=== PATIENT | female | born 1980 | race African-American/Black ===

== ENCOUNTER 2020-01-20 14:16 | Emergency (ER) | payer OTHER ==
[~2020-01-20] VITALS: Ht 162.6 cm; Wt 75.7 kg
[2020-01-20 14:34] VITALS: BP 134/81
--- NOTE | 2020-01-20 14:39 | NUR ---
WAIT AT LOBBY. HANDED ON URINE CUP.
[2020-01-20 17:16] LABS: APPEARANCE,URINE CLOUDY (CLEAR); BILIRUBIN,URINE NEGATIVE (NEGATIVE); BLOOD, URINE 2+ (NEGATIVE); COLOR,URINE YELLOW (YELLOW); LEUKOCYTE ESTERASE ,URINE TRACE (NEGATIVE); NITRITE, URINE NEGATIVE (NEGATIVE); UGLUCOSE NEGATIVE (NEGATIVE)
[2020-01-20 17:45] LABS: URINE AMORPHOUS URATE 1+ /HPF (None Seen)
== END 2020-01-20 15:21 | disposition home or self-care (01) ==
LOC: MED 14:16
DX: N39.0 Urinary tract infection, site not specified (principal)
CPT/HCPCS: 81001; 81025; 87086; 99283

== ENCOUNTER 2020-04-30 18:50 | Emergency (ER) | payer OTHER ==
[~2020-04-30] VITALS: Ht 162.6 cm; Wt 74.8 kg
[2020-04-30 18:54] VITALS: BP 145/102
--- NOTE | 2020-04-30 19:10 | NUR ---
39 Y/O FEMALE PRESENTED TO THE ED C/O 03/16 [place] ABD PAIN X 3 DAYS. PT STATED THAT SHE WAS SEEN AT [facility] ON 04/29/20 DUE TO SEVERE PAIN, DX AT THAT TIME WAS A POSSIBLE RUPTURE OF AN OVARIAN CYST. ABD IS TENDER TO TOUCH AND WHEN AMBULATING. ABD SOUNDS NORMOACTIVE X4 QUADRANTS. PT DENIES ANY RECENT SURGERIES. PT STATED TAKING ACETAMINOPHEN YESTERDAY 04/29/20 WITH ZERO RELIEF OF PAIN. PT IS LYING IN BED, BED IS IN LOWEST POSITION AND WHEELS ARE LOCKED. PT IS NOT IN ANY ACUTE DISTRESS AT THIS TIME. PMH: NONE NKA
--- NOTE | 2020-04-30 19:15 | NUR ---
ERMD AT BEDSIDE FOR MEDICAL EVALUATION
[2020-04-30] MEDS ORDERED: KETOROLAC 30 MG/ML VIAL IM ONE (19:25)
--- NOTE | 2020-04-30 19:39 | NUR ---
lab at bedside.
[2020-04-30 19:49] LABS: BASOPHILS % (AUTO) 0.3 % (0.0-2.0); EOSINOPHILS % (AUTO) 0.6 % (0.0-4.0); HEMATOCRIT 31.1 % (36-48); HEMOGLOBIN 10.6 g/dL (12.0-16.0); LYMPHOCYTES # (AUTO) 2.3 K/uL (2.5-16.5); LYMPHOCYTES % (AUTO) 27.2 % (20.5-51.1); MEAN CORPUSCULAR HEMOGLOBIN 31 pg (27-31); MEAN CORPUSCULAR HGB CONC 34 g/dL (33-37); MONOCYTES # (AUTO) 0.6 K/uL (0.8-1.0); MONOCYTES % (AUTO) 7.1 % (1.7-9.3); NEUTROPHILS # (AUTO) 5.5 K/uL (1.8-7.7); NEUTROPHILS % (AUTO) 64.8 % (42.2-75.2); PLATELET COUNT (AUTO) 192 K/uL (140-450); RED BLOOD CELL COUNT(AUTO) 3.38 MIL/uL (4.20-5.40); RED CELL DISTRIBUTION WIDTH 14.4 % (11.6-13.7); WHITE BLOOD COUNT (AUTO) 8.5 K/uL (4.8-10.8)
[2020-04-30 19:54] LABS: ANION GAP 10.1 (8-16); CARBON DIOXIDE 27.7 mmol/L (21-32); CREATININE 1.2 mg/dL (0.6-1.3); POTASSIUM 3.8 mmol/L (3.5-5.1)
[2020-04-30 20:35] VITALS: BP 145/102
== END 2020-04-30 20:35 | disposition home or self-care (01) ==
LOC: MED 18:50
DX: N83.299 Other ovarian cyst, unspecified side (principal)
CPT/HCPCS: 36415; 80048; 81025; 85025; 96372; 99283; J1885

== ENCOUNTER 2023-03-23 00:57 | Emergency (ER) | payer OTHER ==
[~2023-03-23] VITALS: Ht 160 cm; Wt 79.4 kg
[2023-03-23 01:10] VITALS: BP 144/84; PULSE 88; RESP 16; TEMP 97.3; O2SAT 99
== END 2023-03-23 01:54 | disposition left against medical advice (07) ==
LOC: MED 00:57
DX: J02.9 Acute pharyngitis, unspecified (principal); Z53.21 Procedure and treatment not carried out due to patient leaving prior to being seen by health care provider
CPT/HCPCS: 99281

== ENCOUNTER 2023-08-19 13:29 | Emergency (ER) | payer OTHER ==
[~2023-08-19] VITALS: Ht 162.6 cm; Wt 79.4 kg
[2023-08-19 13:31] VITALS: BP 143/91; PULSE 94; RESP 18; TEMP 98.2; O2SAT 100
[2023-08-19] MEDS ORDERED: CEPH-588 PO (14:05)
[2023-08-19] MEDS ORDERED: IBUP-2213 PO (14:05)
[2023-08-19] MEDS ORDERED: SULF-59 PO (14:05)
[2023-08-19] MEDS ORDERED: KETOROLAC 30 MG/ML VIAL ONE (14:08)
[2023-08-19] MEDS: KETOROLAC 30 MG/ML VIAL IM ONE (14:18)
[2023-08-19 14:21] VITALS: BP 143/91; PULSE 94; RESP 18; TEMP 98.2; O2SAT 100
== END 2023-08-19 14:22 | disposition home or self-care (01) ==
LOC: MED 13:29
DX: L02.415 Cutaneous abscess of right lower limb (principal); Z79.899 Other long term (current) drug therapy
CPT/HCPCS: 81002; 81025; 96372; 99283; J1885